=== PATIENT | female | born 2005 | race Caucasian/White ===

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

== ENCOUNTER 2023-01-21 18:51 | Emergency (ER) | payer BC ==
[~2023-01-21] VITALS: Ht 165.1 cm; Wt 72.7 kg
[2023-01-21 19:56] LABS: BASO % 0.4 % (0.0-2.0); EOS % 0.2 % (0.0-4.0); GRAN # 6.3 K/mm3 (1.4-6.5); GRAN % 60.3 % (42.2-75.2); HEMATOCRIT 40.4 % (35.0-45.0); HEMOGLOBIN 13.7 g/dl (12.0-15.0); LYMPH # 3.3 K/mm3 (1.2-3.4); LYMPH % 31.8 % (20.0-51.0); MEAN CELL VOLUME 89 fl (80.0-95.0); MEAN CORPUSCULAR HEMOGLOBIN 30 pg (26-32); MEAN CORPUSCULAR HGB CONC 34 g/dl (33.0-37.0); MEAN PLATELET VOLUME 9.1 fl (7.4-10.4); MONO # 0.7 K/mm3 (0.1-0.6); MONO % 7.1 % (1.7-9.3); PLATELET COUNT 317 K/mm3 (130-400); RED BLOOD COUNT 4.52 M/mm3 (4.10-5.30); REDCELL DISTRIBUTION WIDTH-CV 12.6 % (11.5-14.5)
[2023-01-21 20:18] LABS: ALBUMIN 3.9 gm/dL (3.5-5.0); BILIRUBIN,TOTAL 0.2 mg/dL (0.2-1.2); CALCIUM 9.2 mg/dL (8.4-10.2); CREATININE, serum 0.74 mg/dL (0.57-1.11); POTASSIUM 3.7 mmol/L (3.5-4.5); TOTAL PROTEIN 7.2 gm/dL (6.2-8.1)
[2023-01-21 20:45] LABS: TRICYCLIC ANTIDEPRESS URINE NEGATIVE
[2023-01-22 06:48] VITALS: BP 106/74; PULSE 98; TEMP 97.8
== END 2023-01-22 06:49 | disposition home or self-care (01) ==
LOC: COL.ER 18:51
PROVIDERS: Nurse Practitioner
DX: S09.90XA Unspecified injury of head, initial encounter (principal); S00.81XA Abrasion of other part of head, initial encounter; F10.129 Alcohol abuse with intoxication, unspecified; W18.30XA Fall on same level, unspecified, initial encounter; W22.09XA Striking against other stationary object, initial encounter; Y93.61 Activity, american tackle football; Y90.8 Blood alcohol level of 240 mg/100 ml or more
CPT/HCPCS: J1630; J2060; J7030